=== PATIENT | female | born 1955 | race American Indian/Alaskan Native ===

== ENCOUNTER 2020-09-03 19:54 | Emergency (ER) | payer OTHER, MEDICARE ==
[2020-09-03] MEDS ORDERED: Sodium Chloride 0.9% 10 ML Syringe IV ONE (20:02)
[2020-09-03] MEDS ORDERED: Ondansetron 4 MG/2 ML SDV IV ONE (20:02)
[2020-09-03] MEDS ORDERED: fentaNYL 100 MCG/2 ML SDV IV ONE (20:02)
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
[2020-09-03] MEDS ORDERED: fentaNYL 100 MCG/2 ML SDV ONE (20:34)
[2020-09-03] MEDS ORDERED: Ondansetron 4 MG/2 ML SDV ONE (20:34)
[2020-09-03 20:41] LABS: PTT,PARTIAL THROMBOPLSTIN TIME 22.5 SEC (22.0-34.0)
[2020-09-03 20:51] LABS: CHLORIDE,CL 101 mmol/L (98-107); SODIUM,NA 139 mmol/L (136-145)
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
== END 2020-09-03 21:00 ==
LOC: DL.ED 20:01
DX: S42.031A Displaced fracture of lateral end of right clavicle, initial encounter for closed fracture (principal); Z20.828 Contact with and (suspected) exposure to other viral communicable diseases; V43.64XA Car passenger injured in collision with van in traffic accident, initial encounter
CPT/HCPCS: 36415; 71045; 80053; 80307; 85025; 85610; 85730; 86850; 86900; 86901; 87635; 96374; 96375; 99284; 99285; J2405; J3010; U0002

== ENCOUNTER 2020-09-11 08:08 | Inpatient (IN) | payer MEDICARE, OTHER ==
[2020-09-11] MEDS ORDERED: Pneumococcal Polyvalent-23 Vaccine 0.5 ML SDV IM ONE (12:00)
[2020-09-11] MEDS ORDERED: Acetaminophen 325 MG Tab PO PRN (12:45)
[2020-09-11] MEDS ORDERED: Ondansetron 4 MG/2 ML SDV IVPUSH PRN (12:45)
[2020-09-11] MEDS ORDERED: Polyethylene Glycol 3350 Powder 17 GM Packet PO PRN (12:45)
[2020-09-11] MEDS ORDERED: Docusate Sodium 100 MG Cap PO PRN (12:45)
[2020-09-11] MEDS: oxyCODONE 5 MG Tab PO PRN ×2 (13:54→22:05)
[2020-09-11] MEDS: Acetaminophen 500 MG Tab PO SCH ×2 (13:54→22:03)
[2020-09-11] MEDS ORDERED: Heparin Sodium 5,000 Units/ML Vial SUBCUT SCH (14:00)
[2020-09-11] MEDS ORDERED: Sodium Chloride 0.9% 10 ML Syringe FLUSH PRN (14:12)
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
[2020-09-11] MEDS: Ibuprofen 600 MG Tab PO SCH (17:48)
[2020-09-11] MEDS: Enoxaparin 30 MG/0.3 ML Syringe SUBCUT SCH (22:02)
[2020-09-12] MEDS: Ibuprofen 600 MG Tab PO SCH ×3 (02:05→18:42)
[2020-09-12] MEDS: Acetaminophen 500 MG Tab PO SCH ×3 (06:30→22:41)
[2020-09-12 07:15] LABS: ANION GAP 8.9 mEq/L (7-13); CHLORIDE,CL 101 mmol/L (98-107); SODIUM,NA 136 mmol/L (136-145)
[2020-09-12] MEDS: Enoxaparin 30 MG/0.3 ML Syringe SUBCUT SCH ×2 (09:37→22:36)
[2020-09-12] MEDS: oxyCODONE 5 MG Tab PO PRN ×4 (10:10→22:40)
[2020-09-12] MEDS ORDERED: fentaNYL 100 MCG/2 ML SDV IVPUSH PRN (14:43)
[2020-09-12] MEDS: Lidocaine 5% 700 MG Patch TOP SCH (22:38)
[2020-09-13] MEDS: Ibuprofen 600 MG Tab PO SCH ×3 (02:36→18:00)
[2020-09-13] MEDS: oxyCODONE 5 MG Tab PO PRN ×2 (02:37→09:16)
[2020-09-13] MEDS: Acetaminophen 500 MG Tab PO SCH ×3 (06:11→22:08)
[2020-09-13] MEDS: Remove Patch*LIDOCAINE TRDERM SCH (09:16)
[2020-09-13] MEDS: Enoxaparin 30 MG/0.3 ML Syringe SUBCUT SCH ×2 (09:16→22:05)
[2020-09-13] MEDS: Lidocaine 5% 700 MG Patch TOP SCH (22:04)
[2020-09-14] MEDS: Ibuprofen 600 MG Tab PO SCH ×4 (01:53→17:09)
[2020-09-14] MEDS: Acetaminophen 500 MG Tab PO SCH ×3 (05:28→22:10)
[2020-09-14] MEDS: oxyCODONE 5 MG Tab PO PRN ×2 (08:57→20:40)
[2020-09-14] MEDS: Enoxaparin 30 MG/0.3 ML Syringe SUBCUT SCH ×2 (08:58→20:40)
[2020-09-14] MEDS: Ondansetron 4 MG Tab.DIS PO PRN ×2 (10:55→20:41)
[2020-09-14] MEDS: Remove Patch*LIDOCAINE TRDERM SCH (11:02)
[2020-09-14] MEDS: Lidocaine 5% 700 MG Patch TOP SCH (20:39)
[2020-09-15] MEDS: Ibuprofen 600 MG Tab PO SCH ×3 (02:01→18:35)
[2020-09-15] MEDS: Acetaminophen 500 MG Tab PO SCH ×3 (05:52→21:02)
[2020-09-15] MEDS: Enoxaparin 30 MG/0.3 ML Syringe SUBCUT SCH ×2 (09:52→20:56)
[2020-09-15] MEDS: Remove Patch*LIDOCAINE TRDERM SCH (09:53)
[2020-09-15] MEDS: oxyCODONE 5 MG Tab PO PRN ×2 (12:51→20:57)
[2020-09-15] MEDS: Lidocaine 5% 700 MG Patch TOP SCH (20:56)
[2020-09-16] MEDS: Ibuprofen 600 MG Tab PO SCH ×3 (02:06→18:00)
[2020-09-16] MEDS: Acetaminophen 500 MG Tab PO SCH ×2 (06:08→14:02)
[2020-09-16] MEDS: oxyCODONE 5 MG Tab PO PRN ×2 (09:30→19:57)
[2020-09-16] MEDS: Enoxaparin 30 MG/0.3 ML Syringe SUBCUT SCH ×2 (09:30→20:00)
[2020-09-16] MEDS: Remove Patch*LIDOCAINE TRDERM SCH (09:32)
[2020-09-16] MEDS: Ondansetron 4 MG Tab.DIS PO PRN (19:56)
[2020-09-16] MEDS: Lidocaine 5% 700 MG Patch TOP SCH (20:00)
[2020-09-17] MEDS: Acetaminophen 500 MG Tab PO SCH ×3 (06:14→17:03)
[2020-09-17] MEDS: Ibuprofen 600 MG Tab PO SCH ×4 (06:14→18:41)
[2020-09-17 07:01] LABS: ANION GAP 13.2 mEq/L (7-13); CHLORIDE,CL 104 mmol/L (98-107); SODIUM,NA 139 mmol/L (136-145)
[2020-09-17] MEDS: Enoxaparin 30 MG/0.3 ML Syringe SUBCUT SCH (08:51)
[2020-09-17] MEDS: Remove Patch*LIDOCAINE TRDERM SCH (08:52)
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
== END 2020-09-18 01:45 | disposition left against medical advice (07) | DRG 560 ==
LOC: DL.MS 12:45
PROVIDERS: ADMIT Internal Medicine; ATTEND Internal Medicine
PROC: 3E02340 Introduction of Influenza Vaccine into Muscle, Percutaneous Approach (ICD-10-PCS; principal; 2020-09-11)
PROC: 3E0234Z Introduction of Serum, Toxoid and Vaccine into Muscle, Percutaneous Approach (ICD-10-PCS; 2020-09-11)
DX: Z47.89 Encounter for other orthopedic aftercare (principal); D62 Acute posthemorrhagic anemia; I10 Essential (primary) hypertension; K59.09 Other constipation; M19.90 Unspecified osteoarthritis, unspecified site; M54.9 Dorsalgia, unspecified; Z96.698 Presence of other orthopedic joint implants; S32.9XXD Fracture of unspecified parts of lumbosacral spine and pelvis, subsequent encounter for fracture with routine healing; E03.9 Hypothyroidism, unspecified; V87.7XXD Person injured in collision between other specified motor vehicles (traffic), subsequent encounter; S42.001D Fracture of unspecified part of right clavicle, subsequent encounter for fracture with routine healing; R07.9 Chest pain, unspecified; S82.202D Unspecified fracture of shaft of left tibia, subsequent encounter for closed fracture with routine healing; G89.29 Other chronic pain; S22.41XD Multiple fractures of ribs, right side, subsequent encounter for fracture with routine healing; Z23 Encounter for immunization
CPT/HCPCS: 36415; 80048; 80053; 84443; 85025; 85027; 97162-GP; 97166-GO; 97530-GO; 97530-GP; A9270-GY; J1650